=== PATIENT | female | born 1945 | race Caucasian/White ===

== ENCOUNTER 2021-05-22 19:03 | Emergency (ER) | payer MEDICARE | END 2021-05-22 21:30 | disposition left against medical advice (07) | LOC: ER 19:03 | DX: U07.1 COVID-19 (principal); Z53.21 Procedure and treatment not carried out due to patient leaving prior to being seen by health care provider ==

== ENCOUNTER 2021-05-23 11:51 | Emergency (ER) | payer MEDICARE | END 2021-05-23 14:45 | disposition left against medical advice (07) | LOC: ER 11:51 | DX: U07.1 COVID-19 (principal); Z53.21 Procedure and treatment not carried out due to patient leaving prior to being seen by health care provider ==